=== PATIENT | female | born 1985 | race Caucasian/White ===

== ENCOUNTER → 2017-12-25 08:25 | Outpatient (CLI) | payer OTHER, SELFPAY ==
--- NOTE | 2017-12-25 09:00 | US_ITS ---
STUDY: THYROID ULTRASOUND REASON FOR EXAM: Female, 32 years old. Thyroid nodules. TECHNIQUE: Ultrasound evaluation of the thyroid was performed with real-time and static salcido-scale imaging. COMPARISON: None. FINDINGS: RIGHT LOBE: The right lobe of the thyroid gland measures 5.07 x 1.7 cm x 1.3 cm. There is a heterogeneous echotexture. Several small nodules are seen. The largest measures 1.1 cm x 1.1 cm x 0.5 cm this is a predominantly solid nodule in the midportion of the right lobe. LEFT LOBE: The left lobe of the thyroid gland measures 5.1 cm x 1.5 cm x 1.3 cm. There is a heterogeneous echotexture. Several nodules are seen. The largest measures 6 mm x 5 mm x 3 mm. This is hypoechoic and solid. This is in the upper pole. ISTHMUS: The isthmus measures 4.0 mm. The regional lymph nodes are normal. US/Thyroid IMPRESSION: Bilateral heterogeneous echotexture of the thyroid. Bilateral nodules. The largest on the right measures 1.1 cm x 1.1 cm x 0.5 cm. The largest on the left measures 6 mm x 5 mm x 3 mm. Electronically Signed: Mark Fall MD at 11:23 EDT Tel [phone], Service support ,
== END ==
PROVIDERS: Family Provider Nurse Practitioner Family; PCP Nurse Practitioner Family; Visit Provider Surgery
DX: E04.1 Nontoxic single thyroid nodule (principal)
CPT/HCPCS: 76536

== ENCOUNTER → 2019-01-07 | Outpatient (CLI) | payer OTHER, SELFPAY ==
--- NOTE | 2019-01-07 13:30 | US_ITS ---
STUDY: THYROID ULTRASOUND REASON FOR EXAM: Female, 33 years old. Nodule TECHNIQUE: Ultrasound evaluation of the thyroid was performed with real-time and static salcido-scale imaging. COMPARISON: Thyroid ultrasound December 25, 2017 FINDINGS: RIGHT LOBE: The right lobe of the thyroid gland measures 4.4 x 1.6 x 1.5 cm. There is a heterogeneous echotexture. There is a right upper pole 8 x 6 x 4 mm heterogeneous nodule and midpole 1 x 0.7 x 0.9 cm heterogeneous nodule. No calcifications are present. LEFT LOBE: The left lobe of the thyroid gland measures 4 x 1.5 x 1.4 cm. There is a heterogeneous echotexture. There are left thyroid hypoechoic nodules, including a superior 7 x 5 x 4 mm nodule, 4 x 2 x 4 mm nodule, and 5 x 4 x 5 mm nodule. No calcifications are present. ISTHMUS: The isthmus measures 4 mm . The regional lymph nodes are normal. US/Thyroid IMPRESSION: Bilateral nodules described above. None meet criteria for biopsy. Heterogeneous gland bilaterally. Electronically Signed: Danis Pope, at 16:50 EDT Tel , Service support ,
== END | disposition home or self-care (01) ==
LOC: US 13:28
PROVIDERS: Family Provider Nurse Practitioner Family; PCP Nurse Practitioner Family; Referring Provider Surgery; Visit Provider Surgery
DX: E04.2 Nontoxic multinodular goiter (principal)
CPT/HCPCS: 76536